=== PATIENT | female | born 1980 | race Two or more races ===

== ENCOUNTER 2023-08-02 18:20 | Emergency (ER) | payer OTHER ==
[~2023-08-02] VITALS: Ht 172.7 cm; Wt 115.2 kg
[2023-08-02 19:55] LABS: HEMATOCRIT 38.6 % (36.0-45.00); HEMOGLOBIN 13.3 g/dL (12.0-15.00); MEAN CELL VOLUME 80.8 fL (80.00-100.00); MEAN CORPUSCULAR HEMOGLOBIN 27.9 pg (27.00-32.0); MEAN CORPUSCULAR HGB CONC 34.5 g/dl (32.0-36.0); PLATELET COUNT 191 K/uL (150-450); RED BLOOD COUNT 4.78 M/uL (4.00-6.00); RED CELL DISTRIBUTION WIDTH 13.8 % (11.5-14.5)
[2023-08-02] MEDS ORDERED: ALLERGY RELIE15.8 ML NASAL (21:05)
[2023-08-02] MEDS ORDERED: TUSSIN DM LIQU118 ML PO (21:05)
== END 2023-08-02 21:12 | disposition home or self-care (01) ==
LOC: ER 18:21
PROVIDERS: Nurse Practitioner Family
DX: J06.9 Acute upper respiratory infection, unspecified (principal); Z88.6 Allergy status to analgesic agent; Z91.018 Allergy to other foods; Z91.013 Allergy to seafood; Z20.822 Contact with and (suspected) exposure to COVID-19

== ENCOUNTER 2023-10-10 10:25 | Emergency (ER) | payer OTHER ==
[~2023-10-10] VITALS: Ht 172.7 cm; Wt 111.1 kg
[~2023-10-10 10:25] MED LIST: ALLERGY RELIE15.8 ML NASAL; TUSSIN DM LIQU118 ML PO
[2023-10-10] MEDS ORDERED: ORPHENADRINE CITRATE 30 MG/ML AMPUL IM STA (13:27)
[2023-10-10] MEDS ORDERED: DEXAMETHASONE SODIUM PHOSPHATE 4 MG/ML VIAL IM ONE (13:30)
[2023-10-10] MEDS ORDERED: GUAIFENESIN/DEXTROMETHORPHAN 100 MG/5 ML ML PO ONE (13:30)
[2023-10-10 13:46] LABS: HEMATOCRIT 38.7 % (36.0-45.00); HEMOGLOBIN 13.1 g/dL (12.0-15.00); MEAN CELL VOLUME 82.5 fL (80.00-100.00); MEAN CORPUSCULAR HGB CONC 33.9 g/dl (32.0-36.0); PLATELET COUNT 225 K/uL (150-450); RED BLOOD COUNT 4.69 M/uL (4.00-6.00)
[2023-10-10] MEDS ORDERED: TYLENOL ARTHRI650 MG PO (15:23)
== END 2023-10-10 15:33 | disposition home or self-care (01) ==
LOC: ER 10:25
PROVIDERS: General Practice
DX: B34.9 Viral infection, unspecified (principal); R07.89 Other chest pain; Z20.822 Contact with and (suspected) exposure to COVID-19; Z88.6 Allergy status to analgesic agent; Z91.018 Allergy to other foods; Z91.013 Allergy to seafood